=== PATIENT | male | born 1960 | race Two or more races ===

== ENCOUNTER 2016-04-10 19:01 | Emergency (ER) | payer BC, OTHER ==
[2016-04-10] MEDS ORDERED: ONDANSETRON 4 MG/2ML 2 ML VIAL ONE (19:28)
[2016-04-10] MEDS ORDERED: MORPHINE SULFATE 4 MG/ML SYRINGE ONE (19:28)
[2016-04-10] MEDS ORDERED: SODIUM CHLORIDE 0.9% 1,000 ML ONE (19:28)
[2016-04-10] MEDS ORDERED: KETOROLAC TROMETHAMINE 30 MG/ML 1 ML VIAL ONE (19:28)
[2016-04-10 19:54] LABS: ABSOLUTE NEUTROPHIL COUNT 2.8 K/mm3 (1.8-7.7); BASO % 0.3 % (0.2-1.0); EOS # 0.3 (0.0-0.5); HEMATOCRIT 45.3 % (32.0-52.0); HEMOGLOBIN 15.5 gm/l (14.0-18.0); IMM NEUT% 0.1 % (0-1); LYMPH % 43.7 % (15-45); MEAN CELL VOLUME 89.3 fl (80.0-94.0); MEAN CORPUSCULAR HEMOGLOBIN 30.6 pg (27.0-31.0); MEAN CORPUSCULAR HGB CONC 34.2 g/dl (33.0-37.0); MEAN PLATELET VOLUME 9.8 fl (7.4-10.4); MONO # 0.8 (0.0-0.8); MONO % 11.5 % (4-12); NEUT % 40.4 % (43-75); PLATELET COUNT 283 K/mm3 (130-400); RED CELL DISTRIBUTION WIDTH 11.8 % (11.5-14.5)
[2016-04-10] MEDS ORDERED: OXYCODONE/ACETAMINOPHEN 5/325 MG TABLET ONE (20:03)
[2016-04-10 20:11] LABS: ALB/GLOB RATIO 1.2 (>1.0); ALBUMIN 3.9 gm/dL (3.5-5.7); CALCIUM 9.2 mg/dL (8.6-10.3)
--- NOTE | 2016-04-10 20:17 | CT ---
ABD/PELVIS W/O CON: 04/10/2016 7:31 PM INDICATION: Sudden onset right flank pain.. COMPARISON: Acute abdominal series 07/07/[address] abdomen and pelvis with contrast 07/06/2013 TECHNIQUE: Contiguous 3 mm transaxial images from a [employer] [address] scanner were obtained from the lung bases through the pubic symphysis without oral or intravenous contrast. Multiplanar images were created at the CT scanner. CT DI: 22.5 DLP: 1167.4 FINDINGS: Lung base: Dependent and atelectatic changes are present at the lung bases. There is no pericardial effusion.. This examination is limited for the evaluation of solid organs and vascular structures due to the lack of intravenous contrast which is standard for urinary calculus assessment CT. Liver: Normal. Gallbladder: Normal Spleen: Normal. Pancreas: Normal. Adrenal Glands: Normal. Right kidney & ureter: - Calculi - No . - Ureter Calculi - 3 mm obstructing stone is noted at the ureteropelvic junction on image 67. - Obstruction / hydronephrosis - Mild Left kidney & ureter: - Calculi - nonobstructing stone is present on image 57 measuring 2 to 3 mm. . - Ureter Calculi- No . - Obstruction / hydronephrosis - No The unopacified stomach and bowel is within normal limits. Appendix is normal. A few scattered diverticula are present without diverticulitis or abscess. No lymphadenopathy is seen in the abdomen or pelvis No free fluid in the abdomen or pelvis. Mild atherosclerotic disease of the abdominal aorta and branch vessels is present. Urinary bladder: -Bladder Calculi- No . - Bladder is decompressed. - Wall is thin. Bone windows- No lytic or sclerotic lesions. There may be some minimal grade 1 retrolisthesis of L5 on S1. Degenerative changes of the spine are mildly noted. IMPRESSION: 1. Right 3 mm obstructing ureteropelvic junction stone with mild hydronephrosis. Nonobstructing stone is present on the left. 2. Non-contrast evaluation of the abdomen and pelvis is otherwise without significant abnormality. Findings were called to Dr. Palencia at approximately 2010 hours on 04/09/2016.
[2016-04-10 20:56] LABS: URINE APPEARANCE SL CLOUDY; URINE BILIRUBIN NEGATIVE (NEGATIVE); URINE BLOOD 4+ (NEGATIVE); URINE COLOR AMBER; URINE GLUCOSE (UA) NEGATIVE (NEGATIVE); URINE LEUKOCYTE ESTERASE NEGATIVE (NEGATIVE); URINE NITRITE NEGATIVE (NEGATIVE); URINE PROTEIN 1+ (NEGATIVE); URINE UROBILINOGEN 1 mg/dL (0-1 mg/dl)
[2016-04-10 21:04] LABS: URINE BACTERIA 2+; URINE EPITHELIAL CELLS 0-1 /hpf; URINE RBC >100 /hpf
[2016-04-10] MEDS ORDERED: CEPHALEXIN 500 MG CAPSULE ONE (21:10)
== END 2016-04-10 21:22 | disposition home or self-care (01) ==
LOC: ED 19:01
DX: N20.1 Calculus of ureter (principal); R11.0 Nausea; Z91.19 Patient's noncompliance with other medical treatment and regimen